=== PATIENT | female | born 1965 | race Caucasian/White ===

== ENCOUNTER 2019-04-26 19:00 | Emergency (ER) | payer OTHER ==
[~2019-04-26] VITALS: Ht 170.2 cm; Wt 68.0 kg
[~2019-04-26 19:00] MED LIST: ALBUTEROL INHALER; FLUT10.6 IH; KRIL1CAP21 PO; PROP10TA PO; [UNRECOGNIZED DRUG - REMARK] PO
--- NOTE | 2019-04-26 19:18 | PHYS DOC ---
Past History Past Medical History: Other Past Surgical History: Hysterectomy Alcohol Use: Rarely Drug Use: None Adult General Chief Complaint Chief Complaint: CHEST PAIN HPI HPI 53-year-old female presents with left-sided chest pain that radiates into her jaw and upper back. The patient states that this pain started about 6 hours ago 1 PM. It does seem to get worse with exertion or movement of her thoracic cage. She has not had shortness of breath or diaphoresis. The pain is a 3 out of 10 at this time and is a sharp cramping. The patient had a similar episode to this one month ago but did not come to the ED. Her PCP did some laboratory work but no stress test or cardiac catheterization. The patient's last stress test was in 2013. It was reported to be clear. She does have an appointment with cardiology tomorrow. She denies fever or chills. Review of Systems Review of Systems Constitutional: Denies fever or chills [] Eyes: Denies change in visual acuity, redness, or eye pain [] HENT: Denies nasal congestion or sore throat [] Respiratory: Denies cough or shortness of breath [] Cardiovascular: No additional information not addressed in HPI [] GI: Denies abdominal pain, nausea, vomiting, bloody stools or diarrhea [] : Denies dysuria or hematuria [] Musculoskeletal: Upper back pain. Denies joint pain [] Integument: Denies rash or skin lesions [] Neurologic: Denies headache, focal weakness or sensory changes [] Endocrine: Denies polyuria or polydipsia [] All other systems were reviewed and found to be within normal limits, except as documented in this note. Allergies Allergies Allergies Coded Allergies Type Severity Reaction Last Updated Verified azithromycin Allergy Severe Shortness of Air 09/14/14 Yes ciprofloxacin Allergy Unknown 04/26/19 Yes oxycodone Allergy Unknown 04/26/19 Yes Physical Exam Physical Exam Constitutional: Well developed, well nourished, no acute distress, non-toxic appearance. [] HENT: Normocephalic, atraumatic, bilateral external ears normal, oropharynx moist, no oral exudates, nose normal. [] Eyes: PERRLA, EOMI, conjunctiva normal, no discharge. [] Neck: Normal range of motion, no tenderness, supple, no stridor. [] Cardiovascular:Heart rate regular rhythm, no murmur [] Lungs & Thorax: Bilateral breath sounds clear to auscultation [] Abdomen: Bowel sounds normal, soft, no tenderness, no masses, no pulsatile m asses. [] Skin: Warm, dry, no erythema, no rash. [] Back: No tenderness, no CVA tenderness. [] Extremities: No tenderness, no cyanosis, no clubbing, ROM intact, no edema. [] Neurologic: Alert and oriented X 3, normal motor function, normal sensory function, no focal deficits noted. [] Psychologic: Affect normal, judgement normal, mood normal. [] EKG EKG Sinus rhythm, rate 73, normal axis, no ST elevations or depressions[] Radiology/Procedures Radiology/Procedures [] Impressions: EXAM: Chest, single view. HISTORY: Chest pain. COMPARISON: 10/16/2015 FINDINGS: A frontal view of the chest is obtained. There is no infiltrate, pleural effusion or pneumothorax. The heart is normal in size. There are metallic clips overlying the right breast and axilla. IMPRESSION: No acute pulmonary finding. Electronically signed by: Kailey Love MD (04/26/2019 7:37 PM) [facility] DICTATED AND SIGNED BY: KAILEY LOVE MD DATE: 04/26/191936 CC: KELLY BRYANT DO; VIVIEN LOZYOA MD ~ Course & Med Decision Making Course & Med Decision Making Pertinent Labs and Imaging studies reviewed. (See chart for details) Patient's labs are unremarkable. Her troponin is negative. Her chest x-ray is unremarkable. This does not appear to be cardiopulmonary in nature. I believe the patient should still follow-up with cardiology as previously scheduled tomorrow. Her HEART score is 2-3. She is stable for discharge at this time. [] Dragon Disclaimer Dragon Disclaimer This electronic medical record was generated, in whole or in part, using a voice recognition dictation system. Departure Departure: Impression: Primary Impression: Chest pain Disposition: HOME, SELF-CARE Condition: STABLE Referrals: VIVIEN LOZOYA MD (PCP) Patient Instructions: Chest Pain (Nonspecific), [id number] Problem Qualifiers Primary Impression: Chest pain Chest pain type: precordial pain Qualified Codes: R07.2 - Precordial pain KELLY BRYANT DO Apr 26, 2019 19:18
[2019-04-26] MEDS ORDERED: ASPIRIN 81 MG TAB.CHEW PO ONE (19:30)
--- NOTE | 2019-04-26 19:40 | RAD ---
EXAM: Chest, single view. HISTORY: Chest pain. COMPARISON: 10/16/2015 FINDINGS: A frontal view of the chest is obtained. There is no infiltrate, pleural effusion or pneumothorax. The heart is normal in size. There are metallic clips overlying the right breast and axilla. IMPRESSION: No acute pulmonary finding. Electronically signed by: Kailey Love MD (04/26/2019 7:37 PM) [facility]
--- NOTE | 2019-04-26 19:40 | EKG ---
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
[2019-04-26 19:46] LABS: BASO # 0.1 x10^3/uL (0.0-0.2); BASO % 1 % (0-3); EOS # 0.2 x10^3/uL (0.0-0.7); EOS % 3 % (0-3); HEMATOCRIT 38.5 % (36.0-47.0); HEMOGLOBIN 12.9 g/dL (12.0-15.5); LYMPH # 2.4 x10^3/uL (1.0-4.8); LYMPH % 38 % (24-48); MEAN CORPUSCULAR HEMOGLOBIN 29 pg (25-35); MEAN CORPUSCULAR HGB CONC 34 g/dL (31-37); MEAN CORPUSCULAR VOLUME 87 fL (79-100); MONO # 0.5 x10^3/uL (0.0-1.1); MONO % 8 % (0-9); NEUT # 3.2 x10^3uL (1.8-7.7); NEUT % 50 % (31-73); PLATELET COUNT 351 x10^3/uL (140-400); RED CELL DISTRIBUTION WIDTH 13.7 % (11.5-14.5); WHITE BLOOD COUNT 6.4 x10^3/uL (4.0-11.0)
[2019-04-26 20:06] LABS: ALBUMIN/GLOBULIN RATIO 1.1 (1.0-1.7); CALCIUM 9.6 mg/dL (8.5-10.1); CREATININE 0.9 mg/dL (0.6-1.0); POTASSIUM 3.6 mmol/L (3.5-5.1); TOTAL BILIRUBIN 0.3 mg/dL (0.2-1.0); TOTAL PROTEIN 7.8 g/dL (6.4-8.2)
[2019-04-26 20:30] VITALS: BP 151/86
== END 2019-04-26 20:48 | disposition home or self-care (01) ==
LOC: ER 19:00
DX: R07.89 Other chest pain (principal); M54.6 Pain in thoracic spine; Z90.710 Acquired absence of both cervix and uterus; Z88.1 Allergy status to other antibiotic agents; Z88.5 Allergy status to narcotic agent
CPT/HCPCS: 36415; 71045; 80053; 83880; 84484; 85025; 93005; 99285-25

== ENCOUNTER 2019-06-21 22:59 | Emergency (ER) | payer OTHER ==
[~2019-06-21] VITALS: Ht 170.2 cm; Wt 71.0 kg
[2019-06-21 23:35] VITALS: BP 161/102
--- NOTE | 2019-06-21 23:45 | PHYS DOC ---
Past History Past Medical History: Cancer (right breast, treated with lumpectomy and radiation), Other Past Surgical History: Cancer Surgery (right-sided lumpectomy), Hysterectomy Smoking: Non-smoker Alcohol Use: Rarely Drug Use: None Adult General HPI HPI Patient is a 53-year-old female presents with left-sided head pain. Patient 2 nights ago tripped and fell into a lamp and [employer] cabinet system. She had no loss of consciousness. Today had an increasing headache. She noted some bruising to her left shoulder. No numbness or tingling in the left shoulder. Patient is concerned about "head bleed." She notes floaters in her left eye since the injury. She noted a lump that is getting better. No significant improvement with ibuprofen today. Not worst headache of life. No weakness in arms or legs. No nausea or vomiting. She has a remote history of breast cancer[] Review of Systems Review of Systems Constitutional: Denies fever or chills [] Eyes: Denies change in visual acuity, redness, or eye pain [] HENT: Denies nasal congestion or sore throat [] Respiratory: Denies cough or shortness of breath [] Cardiovascular: No chest pain or palpitations[] GI: Denies abdominal pain, nausea, vomiting, bloody stools or diarrhea [] : Denies dysuria or hematuria [] Musculoskeletal: Denies back pain or joint pain [] Integument: Denies rash or skin lesions [] Neurologic: Denies focal weakness or sensory changes [] Endocrine: Denies polyuria or polydipsia [] All other systems were reviewed and found to be within normal limits, except as documented in this note. Allergies Allergies Allergies Coded Allergies Type Severity Reaction Last Updated Verified azithromycin Allergy Severe Shortness of Air 09/14/14 Yes ciprofloxacin Allergy Unknown 04/26/19 Yes oxycodone Allergy Unknown 04/26/19 Yes Physical Exam Physical Exam Constitutional: Well developed, well nourished, no acute distress, non-toxic appearance. [] HENT: Normocephalic, atraumatic, bilateral external ears normal, oropharynx moist, no oral exudates, nose normal. [] Eyes: PERRLA, EOMI, conjunctiva normal, no discharge. Normal fundi bilaterally, no hyphema is present [] Neck: Normal range of motion, no tenderness, supple, no stridor. [] Cardiovascular:Heart rate regular rhythm, no murmur [] Lungs & Thorax: Bilateral breath sounds clear to auscultation [] Abdomen: Bowel sounds normal, soft, no tenderness, no masses, no pulsatile masses. [] Skin: Warm, dry, no erythema, no rash. [] Back: No tenderness, no CVA tenderness. [] Extremities: Bruising over the left proximal lateral humerus. Full active range of motion. The other 3 extremities show: No tenderness, no cyanosis, no clubbing, ROM intact, no edema. [] Neurologic: Alert and oriented X 3, normal motor function, normal sensory function, no focal deficits noted. [] Psychologic: Affect normal, judgement normal, mood normal. [] EKG EKG [] Radiology/Procedures Radiology/Procedures PROCEDURE: CT HEAD WO CONTRAST EXAM: CT Head without IV contrast CLINICAL HISTORY: Left-sided head trauma, headache COMPARISON: None. TECHNIQUE: Routine CT of the head without contrast. Soft tissues and bone windows were reviewed. PQRS compliance statement - One or more of the following individualized dose reduction techniques were utilized for this study: 1. Automated exposure control 2. Adjustment of the mA and/or kV according to patient size 3. Use of iterative reconstruction technique FINDINGS: There is no evidence of hemorrhage, mass or extra-axial fluid collection. [place]-white differentiation is maintained with no evidence of edema. There is no mass effect or shift of the intracranial structures. The ventricles, basilar cisterns and cortical sulci are normal in size and configuration for the patients stated age. The cerebellum and brainstem are unremarkable. The calvarium demonstrates no evidence of fracture or focal lesion. There is normal aeration of the visualized paranasal sinuses and mastoid air cells. The visualized portions of the orbits are normal. IMPRESSION: No evidence for acute intracranial process.[] Course & Med Decision Making Course & Med Decision Making Pertinent Labs and Imaging studies reviewed. (See chart for details) Medical decision making: There is no evidence of intracranial mass or bleed. No evidence of a fracture. No evidence of nonaccidental trauma.[] Dragon Disclaimer Dragon Disclaimer This electronic medical record was generated, in whole or in part, using a voice recognition dictation system. Departure Departure: Impression: Primary Impression: Closed head injury Additional Impression: Contusion of left arm Disposition: 01 HOME, SELF-CARE Condition: IMPROVED Referrals: VIVIEN LOZOYA MD (PCP) Follow-up in 2 days Patient Instructions: Contusion, Head Injury, Adult Additional Instructions: Follow-up with your regular doctor in 2 days. Drink plenty of fluids. Return to the ER if worsening pain, weakness, or any other concerns. Scripts Meloxicam (MELOXICAM) 7.5 Mg Tablet 7.5 MG PO DAILY for PAIN, #20 TAB Prov: DANIEL YEBOAH DO 06/22/19 Problem Qualifiers Primary Impression: Closed head injury Encounter type: initial encounter Qualified Codes: S09.90XA - Unspecified injury of head, initial encounter Additional Impression: Contusion of left arm Encounter type: initial encounter Qualified Codes: S40.022A - Contusion of left upper arm, initial encounter DANIEL YEBOAH DO Jun 21, 2019 23:45
[2019-06-21] MEDS ORDERED: AROMASIN (23:53)
[2019-06-21] MEDS ORDERED: vitamin D (23:54)
[2019-06-21] MEDS ORDERED: lorazepam (23:54)
--- NOTE | 2019-06-22 00:10 | RAD ---
EXAM: CT Head without IV contrast CLINICAL HISTORY: Left-sided head trauma, headache COMPARISON: None. TECHNIQUE: Routine CT of the head without contrast. Soft tissues and bone windows were reviewed. PQRS compliance statement - One or more of the following individualized dose reduction techniques were utilized for this study: 1. Automated exposure control 2. Adjustment of the mA and/or kV according to patient size 3. Use of iterative reconstruction technique FINDINGS: There is no evidence of hemorrhage, mass or extra-axial fluid collection. [place]-white differentiation is maintained with no evidence of edema. There is no mass effect or shift of the intracranial structures. The ventricles, basilar cisterns and cortical sulci are normal in size and configuration for the patients stated age. The cerebellum and brainstem are unremarkable. The calvarium demonstrates no evidence of fracture or focal lesion. There is normal aeration of the visualized paranasal sinuses and mastoid air cells. The visualized portions of the orbits are normal. IMPRESSION: No evidence for acute intracranial process. Electronically signed by: Jim Doshi MD (06/22/2019 12:07 AM) [facility]
[2019-06-22] MEDS ORDERED: MELO7.5T29 PO (00:19)
== END 2019-06-22 00:34 | disposition home or self-care (01) ==
LOC: ER 22:59
DX: S40.022A Contusion of left upper arm, initial encounter (principal); S09.8XXA Other specified injuries of head, initial encounter; Z88.1 Allergy status to other antibiotic agents; Z88.5 Allergy status to narcotic agent; W01.0XXA Fall on same level from slipping, tripping and stumbling without subsequent striking against object, initial encounter; Y93.89 Activity, other specified; Y92.89 Other specified places as the place of occurrence of the external cause; Y99.8 Other external cause status
CPT/HCPCS: 70450; 99284-25

== ENCOUNTER 2021-01-14 20:06 | Emergency (ER) | payer OTHER ==
[~2021-01-14] VITALS: Ht 170.2 cm; Wt 71.0 kg
[~2021-01-14 20:06] MED LIST changes: +AROMASIN; +MELO7.5T29 PO; +lorazepam; +vitamin D
[2021-01-14 20:18] VITALS: BP 176/97
--- NOTE | 2021-01-14 20:41 | PHYS DOC ---
Past History Past Medical History: Cancer, UTI, Other Additional Past Medical Histor: BREAST CANCER Past Surgical History: Cancer Surgery, Hysterectomy Additional Past Surgical Histo: LUMPECTOMY Smoking: Non-smoker Alcohol Use: Rarely Drug Use: None Adult General Chief Complaint Chief Complaint: URINARY FREQUENCY HPI HPI Patient is a 55-year-old female with a past medical history significant for multiple UTIs in the past who presents with a chief complaint of dysuria and sense of urgency for couple days. States she thinks she has a little bit of blood in her urine as well which is common for her. Denies any recent illnesses, fevers, known ill contacts, chest pain, shortness of breath, abdominal pain, blood in the stool. Denies any recent travel or trauma. Review of Systems Review of Systems Review of systems otherwise unremarkable except noted in HPI. Allergies Allergies Allergies Coded Allergies Type Severity Reaction Last Updated Verified azithromycin Allergy Severe Shortness of Air 06/21/19 Yes ciprofloxacin Allergy Intermediate 01/14/21 Yes oxycodone Allergy Intermediate 01/14/21 Yes Sulfa (Sulfonamide Antibiotics) Adverse Reaction Mild 01/14/21 Yes Physical Exam Physical Exam Constitutional: Well developed, well nourished, no acute distress, non-toxic appearance. [] Abdomen: Bowel sounds normal, soft, no tenderness, no masses, no pulsatile masses. [] Skin: Warm, dry, no erythema, no rash. [] Back: No tenderness, no CVA tenderness. [] Extremities: No tenderness, no cyanosis, no clubbing, ROM intact, no edema. [] Neurologic: Alert and oriented X 3, normal motor function, normal sensory function, no focal deficits noted. [] Psychologic: Affect normal, judgement normal, mood normal. [] Current Patient Data Vital Signs Vital Signs Date Time Temp Pulse Resp B/P (MAP) Pulse Ox O2 Delivery O2 Flow Rate FiO2 01/14/21 20:18 98.0 100 18 176/97 (123) 99 Room Air EKG EKG [] Radiology/Procedures Radiology/Procedures [] Heart Score Risk Factors: Risk Factors: DM, Current or recent (<one month) smoker, HTN, HLP, family history of CAD, obesity. Risk Scores: Risk Factors: DM, Current or recent (<one month) smoker, HTN, HLP, family history of CAD, obesity. Course & Med Decision Making Course & Med Decision Making Patient is a 55-year-old female presents with a 2-day history of dysuria and sense of urgency, with possible hematuria Vital signs notable for hypertension. Physical exam noted above. Urinalysis with hematuria, no bacteria 5-10 whites and some leukocyte esterase per lab. Laboratory staff states that because of the blood in there the test can sometimes be inconclusive. Discussed findings with family who opted to go ahead and start on antibiotics and per imaging given his symptoms and she has had this in the past. Advised to follow-up in the morning with her primary care to set up an appointment later this week for repeat testing. Advised [place] to the ED with new or concerning symptoms. Family grateful, verbalized understanding and agreed with plan of discharge. [] Dragon Disclaimer Dragon Disclaimer This electronic medical record was generated, in whole or in part, using a voice recognition dictation system. Departure Departure: Impression: Primary Impression: Dysuria Additional Impressions: Hematuria Urinary tract infection Disposition: 01 DC HOME SELF CARE/HOMELESS Condition: GOOD Referrals: VIVIEN LOZOYA MD (PCP) Additional Instructions: Please read all the attached information. Please take your prescriptions as prescribed. Please call your primary care physician first thing tomorrow to discuss your ED visit and set up a follow-up as needed. Please come back to the ED with new or concerning symptoms as discussed. Scripts Cephalexin (CEPHALEXIN) 500 Mg Capsule 1 CAP PO TID for UTI for 5 Days, #15 CAP Prov: PETER HERNANDEZ MD 01/14/21 Phenazopyridine Hcl (PYRIDIUM) 100 Mg Tablet 1 TAB PO TID for urinary discomfort for 2 Days, #6 TAB 0 Refills Prov: PETER HERNANDEZ MD 01/14/21 Cephalexin (CEPHALEXIN) 500 Mg Capsule 1 CAP PO TID for UTI for 5 Days, #15 CAP Prov: PETER HERNANDEZ MD 01/14/21 Problem Qualifiers PETER HERNANDEZ MD Jan 14, 2021 20:41
[2021-01-14 20:49] LABS: CLARITY,URINE CLEAR; COLOR,URINE RED
[2021-01-14 20:50] LABS: BACTERIA,URINE 0 /HPF (0-FEW); SQUAMOUS EPITHELIAL CELL,UR OCC /LPF
[2021-01-14] MEDS ORDERED: CEPH500C PO ×2 (20:59→21:02)
[2021-01-14] MEDS ORDERED: PHEN100T82 PO (20:59)
[2021-01-14] MEDS ORDERED: CEPHALEXIN 250 MG CAPSULE PO ONE (21:15)
[2021-01-14] MEDS ORDERED: PHENAZOPYRIDINE 100 MG TABLET. PO ONE (21:15)
== END 2021-01-14 21:14 | disposition home or self-care (01) ==
LOC: ER 20:06
DX: N39.0 Urinary tract infection, site not specified (principal); R31.9 Hematuria, unspecified; Z87.440 Personal history of urinary (tract) infections; Z90.710 Acquired absence of both cervix and uterus; Z88.1 Allergy status to other antibiotic agents; Z88.2 Allergy status to sulfonamides; Z88.5 Allergy status to narcotic agent
CPT/HCPCS: 81001; 87086; 99283